=== PATIENT | male | born 1970 | race Caucasian/White ===

== ENCOUNTER 2017-05-07 18:24 | Emergency (ER) | payer MEDICAID, SELFPAY ==
[2017-05-07 18:34] VITALS: BP 140/75; PULSE 93; RESP 20; TEMP 36.8; O2SAT 97; BMI 18.4
--- NOTE | 2017-05-07 19:01 | CT_ITS ---
CT abdomen pelvis wo con CLINICAL INDICATION: Left-sided abdominal pain with nausea ITS.REASON: ABDOMINAL PAIN ORDERING PHYSICIAN: Duane Johns MD PATIENT AGE: 46 years COMPARISON: None TECHNIQUE: Axial images obtained with sagittal and coronal reformats. All CT scans at the facility use one or more dose reduction, viz: automated exposure control; ma/kV adjustment per patient size (including targeted exams where dose is matched to indication; i.e. head); or iterative reconstruction technique. PROCEDURE: Oral Contrast: None IV Contrast: None . FINDINGS: The lung bases are clear. The liver, spleen, adrenal glands, and pancreas have an unremarkable unenhanced CT appearance. There is a gallstone present. No obstructing renal or ureteral calculi. No evidence of appendicitis or diverticulitis. No intestinal obstruction or free air. The urinary bladder wall is somewhat thickened but is collapsed which may account for the thickening. There are multiple unopacified bowel loops present within the abdomen/pelvis which could obscure or mimic pathology. If symptoms persists, consider repeating exam with IV and oral contrast administration. IMPRESSION: 1. Cholelithiasis. 2. Otherwise negative CT abdomen pelvis without contrast.
[2017-05-07 19:09] LABS: Basophils % 0.3 % (0.1-2.0); Eosinophils # 0.1 K/mm3 (0.0-0.4); Eosinophils % 3.2 % (0.1-12.0); Hematocrit 45.8 % (42.0-52.0); Hemoglobin 15.3 g/dL (14.1-18.0); Lymphocytes # 1.3 K/mm3 (0.7-4.5); Mean Corpuscular HGB Conc 33.3 g/dL (31.8-35.4); Mean Corpuscular Hemoglobin 30.6 pg (27.0-31.2); Mean Platelet Volume 9.4 fl (7.4-10.4); Monocytes # 0.4 K/mm3 (0.1-1.0); Monocytes % 8.1 % (1.7-9.3); Neutrophils # 2.7 K/mm3 (1.8-7.8); Neutrophils % 60.3 % (37.0-80.0); Platelet Count 126 K/mm3 (142-424); Red Blood Count 4.98 M/mm3 (4.60-6.20); Red Cell Distribution Width 13.2 % (11.5-17.5); White Blood Count 4.5 K/mm3 (4.8-10.8)
[2017-05-07 19:17] VITALS: BP 116/76; PULSE 75; RESP 16; TEMP 36.8; O2SAT 98
[2017-05-07 19:38] LABS: Alanine Aminotransferase 29 U/L (12-78); Albumin Level 3.6 gm/dL (3.4-5.0); Albumin/Globulin Ratio 0.9 (1.1-1.8); Alkaline Phosphatase 109 U/L (46-116); Anion Gap 11.4 mEq/L (5-15); Aspartate Amino Transferase 26 U/L (15-37); Bilirubin,Total 0.2 mg/dL (0.2-1.0); Blood Urea Nitrogen 13 mg/dL (7-18); CKMB Relative Index 0.3 U/L (0-4.0); Calcium 8.6 mg/dL (8.5-10.1); Carbon Dioxide 28 mmol/L (21.0-32.0); Chloride 103 mmol/L (98-107); Creatine Kinase 151 U/L (39-308); Creatine Kinase MB < 0.5 ng/ml (0.0-3.6); Creatinine Clearance Estimated 75 mL/min (0-300); Estimated Glomerular Filt Rate 72 ml/min (>60); GFR (African American) 87 ML/MIN (>60); Globulin 3.8 gm/dl (1.3-3.2); Glucose 112 mg/dL (74-106); Potassium 3.4 mmoL/L (3.5-5.1); Sodium 139 mmol/L (136-145); Total Protein,Serum 7.4 gm/dL (6.4-8.2); Troponin I < 0.02 ng/ml (0.00-0.06)
[2017-05-07 19:44] LABS: Microscopic, Urine URINE MICROSCOPIC (MICROSCOPIC)
[2017-05-07 19:46] LABS: Appearance,Urine CLEAR (Clear); Blood, Urine Negative (Negative); Color,Urine YELLOW (Yellow); Glucose,Urine (UA) Negative (Negative); Ketones,Urine Negative (Negative); Leukocyte Esterase,Urine Negative (Negative); Nitrate,Urine Negative (Negative); PH,Urine 5.5 (5.0-8.5); Protein,Urine TRACE (Negative); Specific Gravity, Urine >= 1.030 (1.005-1.030)
[2017-05-07 19:53] LABS: Bilirubin,Urine Negative (Negative)
--- NOTE | 2017-05-07 19:54 | [facility].EDGENADL ---
ED Disposition Condition on Discharge: Good Time of Disposition: 20:05 - Critical Care Critical Care Time: No <Duane Johns - Last Filed: 05/07/17 20:04> <Zaheer Tapia - Last Filed: 05/07/17 20:50> Clinical Impression: Viral syndrome, Dehydration, Muscle cramps Cholelithiasis Qualifiers: Cholelithiasis location: gallbladder Cholecystitis presence: without cholecystitis Biliary obstruction: without biliary obstruction Qualified Code(s): K80.20 - Calculus of gallbladder without cholecystitis without obstruction Disposition: Home, Self-Care Additional Instructions: Please alternate Motrin with Tylenol for body aches, as needed, drink plenty of fluids, follow-up with PCP, if not better within 2 days. Referrals: Zaheer Tapia MD [Primary Care Provider] - Attestation: On 05/07/17, the high probability of a clinically significant, sudden or life threatening deterioration of the following system(s) required my full and direct attention, intervention and personal management. The time I documented below is in addition to time spent performing reported procedures but includes the following listed in this critical care notation. Medical Decision Making - Medical Records Medical records reviewed: Yes: I reviewed the patient's medical records. - [place] Inquiry Pt receiving controlled substance: No - Lab Data Lab results reviewed: Yes: I reviewed the patient's lab results. Result diagrams: 05/07/17 18:50 05/07/17 18:50 - Physician Consults Physician Consulted: Dr Tapia Time: 20:12 Comment/Response: care trasferred to Dr Tapia at 2009, pedning the CT scan A/P result <Duane Johns - Last Filed: 05/07/17 20:04> - Lab Data Result diagrams: 05/07/17 18:50 05/07/17 18:50 <Zaheer Tapia - Last Filed: 05/07/17 20:50> Vital Signs: 05/07/17 18:34 05/07/17 19:17 Temperature 98.3 F 98.2 F Temperature Source Oral Oral Pulse Rate [Right Radial] 93 H 75 Respiratory Rate 20 16 Blood Pressure [Right Arm] 140/75 116/76 Blood Pressure Mean [Right Arm] 96 89 Blood Pressure Source [Right Arm] Automatic Cuff Automatic Cuff Blood Pressure Position [Right Arm] Sitting Supine 02 Sat by Pulse Oximetry 97 98 Oxygen Delivery Method Room Air Room Air - Lab Data Lab Results 05/07/17 18:50: WBC 4.5 L, RBC 4.98, Hgb 15.3, Hct 45.8, MCV 92.0, MCH 30.6, MCHC 33.3, RDW 13.2, Plt Count 126 L, MPV 9.4, Neut % (Auto) 60.3, Lymph % (Auto) 28.0, [place] % (Auto) 8.1, Eos % (Auto) 3.2, Baso % (Auto) 0.3, Neut # (Auto) 2.7, Lymph # (Auto) 1.3, [place] # (Auto) 0.4, Eos # (Auto) 0.1, Baso # (Auto) 0.0 05/07/17 18:50: Sodium 139, Potassium 3.4 L, Chloride 103, Carbon Dioxide 28, Anion Gap 11.4, BUN 13, Creatinine 1.10, Estimated Creat Clear 75, Estimated GFR 72, Est GFR ( Amer) 87, Glucose 112 H, Calcium 8.6, Total Bilirubin 0.2, AST 26, ALT 29, Alkaline Phosphatase 109, Total Creatine Kinase 151, CK-MB (CK-2) < 0.5, CK-MB (CK-2) Rel Index 0.3, Troponin I < 0.02, Total Protein 7.4, Albumin 3.6, Globulin 3.8 H, Albumin/Globulin Ratio 0.9 L 05/07/17 19:25: Urine Color Yellow, Urine Appearance Clear, Urine pH 5.5, Ur Specific [place] >= 1.030, Urine Protein Trace, Urine Glucose (UA) Negative, Urine Ketones Negative, Urine Blood Negative, Urine Nitrate Negative, Urine Bilirubin Negative, Urine Urobilinogen 1.0, Ur Leukocyte Esterase Negative, Urine WBC 3-5, Ur Squamous Epith Cells Occasional, Urine Bacteria 2+, Urine Mucus 4+ 05/07/17 19:25: Urine Opiates Screen Negative, Ur Barbituates Screen Negative, Ur Phencyclidine Scrn Negative, Ur Amphetamines Screen Positive H, U Methamphetamines Scrn Negative, U Benzodiazepines Scrn Negative, Urine Cocaine Screen Negative, U Marijuana (THC) Screen Positive H Orders (Tests/Meds): ED MEDICATIONS Discontinued Medications Generic Name Dose Route Start Last Admin Trade Name Freq PRN Reason Stop Dose Admin Sodium Chloride 1,000 mls @ 999 mls/hr 05/07/17 19:00 05/07/
[2017-05-07 19:55] LABS: Amphetamine/Metha Screen,Urine Positive ng/mL (<1000); Barbiturates Screen,Urine Negative ng/mL (<200); Benzodiazepines Screen,Urine Negative ng/mL (200); Cannabinoid Screen,Urine Positive ng/mL (<50); Cocaine Screen,Urine Negative ng/g (<300); Methadone Screen,Urine Negative ng/mL (<300); Opiate Screen,Urine Negative ng/mL (<300); Phencyclidine Screen,Urine Negative ng/mL (<25)
[2017-05-07 19:56] LABS: Bacteria,Urine 2+ /lpf; Mucus,Urine 4+ /lpf; Squamous Epithelial Cell,Urine Occasional #/hpf (0-5)
--- NOTE | 2017-05-07 19:57 | ED_ITS ---
ED Disposition Condition on Discharge: Good Time of Disposition: 20:05 - Critical Care Critical Care Time: No <Duane Johns - Last Filed: 05/07/17 20:04> <Zaheer Tapia - Last Filed: 05/07/17 20:50> Clinical Impression: Viral syndrome, Dehydration, Muscle cramps Cholelithiasis Qualifiers: Cholelithiasis location: gallbladder Cholecystitis presence: without cholecystitis Biliary obstruction: without biliary obstruction Qualified Code(s) : K80.20 - Calculus of gallbladder without cholecystitis without obstruction Disposition: Home, Self-Care Additional Instructions: Please alternate Motrin with Tylenol for body aches, as needed, drink plenty of fluids, follow-up with PCP, if not better within 2 days. Referrals: Zaheer Tapia MD [Primary Care Provider] - Attestation: On 05/07/17, the high probability of a clinically significant, sudden or life threatening deterioration of the following system(s) required my full and direct attention, intervention and personal management. The time I documented below is in addition to time spent performing reported procedures but includes the following listed in this critical care notation. Medical Decision Making - Medical Records Medical records reviewed: Yes: I reviewed the patient's medical records. - [place] Inquiry Pt receiving controlled substance: No - Lab Data Lab results reviewed: Yes: I reviewed the patient's lab results. Result diagrams: 05/07/17 18:50 05/07/17 18:50 - Physician Consults Physician Consulted: Dr Tapia Time: 20:12 Comment/Response: care trasferred to Dr Tapia at 2009, pedning the CT scan A/P result <Duane Johns - Last Filed: 05/07/17 20:04> - Lab Data Result diagrams: 05/07/17 18:50 05/07/17 18:50 <Zaheer Tapia - Last Filed: 05/07/17 20:50> Vital Signs: 05/07/17 18:34 05/07/17 19:17 Temperature 98.3 F 98.2 F Temperature Source Oral Oral Pulse Rate [Right Radial] 93 H 75 Respiratory Rate 20 16 Blood Pressure [Right Arm] 140/75 116/76 Blood Pressure Mean [Right Arm] 96 89 Blood Pressure Source [Right Arm] Automatic Cuff Automatic Cuff Blood Pressure Position [Right Arm] Sitting Supine 02 Sat by Pulse Oximetry 97 98 Oxygen Delivery Method Room Air Room Air - Lab Data Lab Results 05/07/17 18:50: WBC 4.5 L, RBC 4.98, Hgb 15.3, Hct 45.8, MCV 92.0, MCH 30.6, MCHC 33.3, RDW 13.2, Plt Count 126 L, MPV 9.4, Neut % (Auto) 60.3, Lymph % (Auto ) 28.0, [place] % (Auto) 8.1, Eos % (Auto) 3.2, Baso % (Auto) 0.3, Neut # (Auto) 2.7, Lymph # (Auto) 1.3, [place] # (Auto) 0.4, Eos # (Auto) 0.1, Baso # (Auto) 0.0 05/07/17 18:50: Sodium 139, Potassium 3.4 L, Chloride 103, Carbon Dioxide 28, Anion Gap 11.4, BUN 13, Creatinine 1.10, Estimated Creat Clear 75, Estimated GFR 72, Est GFR ( Amer) 87, Glucose 112 H, Calcium 8.6, Total Bilirubin 0.2, AST 26, ALT 29, Alkaline Phosphatase 109, Total Creatine Kinase 151, CK-MB (CK-2) < 0.5, CK-MB (CK-2) Rel Index 0.3, Troponin I < 0.02, Total Protein 7.4, Albumin 3.6, Globulin 3.8 H, Albumin/Globulin Ratio 0.9 L 05/07/17 19:25: Urine Color Yellow, Urine Appearance Clear, Urine pH 5.5, Ur Specific [place] >= 1.030, Urine Protein Trace, Urine Glucose (UA) Negative, Urine Ketones Negative, Urine Blood Negative, Urine Nitrate Negative, Urine Bilirubin Negative, Urine Urobilinogen 1.0, Ur Leukocyte Esterase Negative, Urine WBC 3-5, Ur Squamous Epith Cells Occasional, Urine Bacteria 2+, Urine Mucus 4+ 05/07
[2017-05-07 20:59] VITALS: BP 115/65; PULSE 85; RESP 20; TEMP 37.1; O2SAT 98
== END 2017-05-07 21:02 | disposition home or self-care (01) ==
PROVIDERS: Emergency Provider Emergency Medicine; Family Provider Physician Assistant; PCP Emergency Medicine
DX: K80.20 Calculus of gallbladder without cholecystitis without obstruction (principal); F17.210 Nicotine dependence, cigarettes, uncomplicated
CPT/HCPCS: 74176; 80053; 80305; 81001; 82550; 82553; 84484; 85025; 87086; 93005; 96365; 96375; 99284; J2405

== ENCOUNTER → 2020-03-09 19:05 | Outpatient (CLI) | payer MEDICAID, SELFPAY ==
[2020-03-09 19:31] LABS: Alanine Aminotransferase 23 U/L (12-78); Albumin Level 4.7 g/dl (3.5-5.0); Albumin/Globulin Ratio 1.6 (1.1-1.8); Alkaline Phosphatase 102 U/L (38-126); Anion Gap 13.5 mEq/L (5-15); Aspartate Amino Transferase 33 U/L (17-59); Bilirubin,Total 0.6 mg/dl (0.2-1.3); Blood Urea Nitrogen 13 mg/dl (9-20); Calcium 9.9 mg/dl (8.4-10.2); Carbon Dioxide 25 mmol/L (22.0-30.0); Chloride 103 mmol/L (98-107); Chol/HDL Ratio 5.3 (1-3.5); Cholesterol 228 mg/dl (140-200); Estimated Glomerular Filt Rate 79 ml/min (>60); GFR (African American) 96 ML/MIN (>60); Glucose 90 mg/dl (74-100); HDL Cholesterol 43 mg/dl (40-60); Potassium 4.5 mmoL/L (3.5-5.1); Sodium 137 mmol/L (136-145); Total Protein,Serum 7.7 g/dl (6.3-8.2); Triglycerides 166 mg/dl (30-150); VLDL Cholesterol 33 mg/dL (0-40)
[2020-03-09 19:42] LABS: Direct LDL Cholesterol 142.75 mg/dL (100-129)
[2020-03-09 19:44] LABS: Basophils % 0.5 % (0.1-2.0); Eosinophils # 0.3 K/mm3 (0.0-0.4); Eosinophils % 6.5 % (0.1-12.0); Hematocrit 46.2 % (42.0-52.0); Hemoglobin 14.9 g/dL (14.1-18.0); Lymphocytes % 41.2 % (10-50); Mean Corpuscular HGB Conc 32.2 g/dL (31.8-35.4); Mean Corpuscular Hemoglobin 30.2 pg (27.0-31.2); Mean Corpuscular Volume 93.7 fl (80-94); Mean Platelet Volume 9.6 fl (7.4-10.4); Monocytes # 0.4 K/mm3 (0.1-1.0); Monocytes % 8.1 % (1.7-9.3); Neutrophils # 2.1 K/mm3 (1.8-7.8); Neutrophils % 43.8 % (37.0-80.0); Platelet Count 194 K/mm3 (142-424); Red Blood Count 4.94 M/mm3 (4.60-6.20); Red Cell Distribution Width 13.4 % (11.5-17.5); White Blood Count 4.7 K/mm3 (4.8-10.8)
[2020-03-09 19:48] LABS: T4 (Thyroxine) 9.6 ug/dl (5.53-11.0)
[2020-03-09 20:02] LABS: Thyroid Stimulating Hormone 2.91 uIU/mL (0.465-4.68)
[2020-03-11 13:47] LABS: PSA, Free 0.25 ng/mL; Prostate Specific Ag 0.7 ng/mL (0.0-4.0)
== END ==
PROVIDERS: Visit Provider Nurse Practitioner Family
DX: Z00.00 Encounter for general adult medical examination without abnormal findings (principal); E55.9 Vitamin D deficiency, unspecified
CPT/HCPCS: 80053; 80061; 82306; 84153; 84154; 84436; 84443; 85025